=== PATIENT | female | born 1940 | race Caucasian/White ===

== ENCOUNTER 2020-11-24 14:34 | Outpatient (CLI) | payer MEDICARE, OTHER | END 2020-11-24 14:35 | disposition home or self-care (01) | LOC: BICULT 14:34 | PROVIDERS: ATTEND Urology | DX: R31.29 Other microscopic hematuria (principal); R39.15 Urgency of urination; N28.1 Cyst of kidney, acquired; Z87.440 Personal history of urinary (tract) infections | CPT/HCPCS: 76770 ==